=== PATIENT | male | born 1995 | race Caucasian/White ===

== ENCOUNTER → 2018-06-30 | Outpatient (CLI) | payer OTHER | LOC: COL.RAD 13:45 | DX: R51 Headache (principal) | CPT/HCPCS: A9585 ==

== ENCOUNTER 2018-09-06 13:30 | Emergency (ER) | payer OTHER ==
[~2018-09-06] VITALS: Ht 175.3 cm; Wt 86.4 kg
[2018-09-06] MEDS ORDERED: LEVSIN 0.10.125 MG/T PO (14:03)
[2018-09-06] MEDS ORDERED: LAMICTAL150 MG PO (14:05)
[2018-09-06] MEDS ORDERED: LEXAPRO20 MG PO (14:06)
[2018-09-06] MEDS ORDERED: BACTRIM DS 8001 TAB PO (14:07)
[2018-09-06] MEDS ORDERED: SINEQUAN 1010 MG/CAP PO (14:08)
[2018-09-06 14:15] LABS: BASO % 0.7 % (0.0-2.0); EOS # 0.2 (0.0-0.7); EOS % 2.9 % (0-4.0); GRAN # 3.9 (1.4-6.5); GRAN % 63.8 % (42.2-75.2); HEMATOCRIT 45.2 % (42.0-52.0); LYMPH # 1.1 (1.2-3.4); LYMPH % 18.7 % (20.0-51.0); MEAN CELL VOLUME 82 fl (80.0-100.0); MEAN CORPUSCULAR HEMOGLOBIN 29 pg (27.0-31.0); MEAN CORPUSCULAR HGB CONC 35 g/dl (33.0-37.0); MEAN PLATELET VOLUME 10.3 fl (7.4-10.4); MONO # 0.8 (0.1-0.6); MONO % 13.1 % (1.7-9.3); PLATELET COUNT 232 K/mm3 (130-400); RED BLOOD COUNT 5.51 M/mm3 (4.20-5.60)
[2018-09-06 14:28] LABS: ALBUMIN 4.5 gm/dL (3.5-5.0); BILIRUBIN,TOTAL 0.6 mg/dL (0.0-1.0); CALCIUM 9.1 mg/dL (8.4-10.2); CREATININE, serum 0.96 mg/dL (0.66-1.25); POTASSIUM 3.9 mmol/L (3.4-5.0); TOTAL PROTEIN 7.7 gm/dL (6.4-8.2)
[2018-09-06 15:47] VITALS: BP 120/76; PULSE 105; TEMP 99.4
== END 2018-09-06 16:00 | disposition home or self-care (01) ==
LOC: COL.ER 13:30
PROVIDERS: Physician Assistant
DX: T36.8X5A Adverse effect of other systemic antibiotics, initial encounter (principal); T37.0X5A Adverse effect of sulfonamides, initial encounter; R21 Rash and other nonspecific skin eruption; F32.9 Major depressive disorder, single episode, unspecified; F41.9 Anxiety disorder, unspecified
CPT/HCPCS: J7030

== ENCOUNTER → 2019-02-01 | Outpatient (CLI) | payer OTHER ==
[~2019-02-01] MED LIST: BACTRIM DS 8001 TAB PO; LAMICTAL150 MG PO; LEVSIN 0.10.125 MG/T PO; LEXAPRO20 MG PO; SINEQUAN 1010 MG/CAP PO
== END ==
LOC: COL.RAD 12:39
DX: N43.3 Hydrocele, unspecified (principal)

== ENCOUNTER → 2019-02-09 | Outpatient (CLI) | payer OTHER | LOC: COL.CARD 02-01 08:15 | DX: R00.2 Palpitations (principal) ==

== ENCOUNTER 2020-05-09 13:00 | Outpatient (RCR) | payer OTHER ==
[2020-04-20 15:33] LABS: BASO # 0.1 (0.0-0.2); BASO % 0.4 % (0.0-2.0); EOS % 0.3 % (0-4.0); GRAN # 8.6 (1.4-6.5); GRAN % 76.8 % (42.2-75.2); HEMATOCRIT 44.4 % (42.0-52.0); HEMOGLOBIN 15.4 g/dl (13.5-18.0); LYMPH # 1.9 (1.2-3.4); MEAN CELL VOLUME 84 fl (80.0-100.0); MEAN CORPUSCULAR HEMOGLOBIN 29 pg (27.0-31.0); MEAN CORPUSCULAR HGB CONC 35 g/dl (33.0-37.0); MEAN PLATELET VOLUME 9.8 fl (7.4-10.4); MONO # 0.6 (0.1-0.6); MONO % 5.1 % (1.7-9.3); PLATELET COUNT 304 K/mm3 (130-400)
[2020-04-20 15:53] LABS: ALBUMIN 4.7 gm/dL (3.5-5.0); BILIRUBIN,TOTAL 0.6 mg/dL (0.0-1.0); CALCIUM 9.6 mg/dL (8.4-10.2); CREATININE, serum 0.7 (0.66-1.25); POTASSIUM 4.1 mmol/L (3.4-5.0); TOTAL PROTEIN 7.7 gm/dL (6.4-8.2)
[2020-04-20 17:12] VITALS: BP 133/79; PULSE 98; TEMP 98.7
[2020-04-20 17:25] VITALS: PULSE 107
[2020-04-20 17:46] VITALS: BP 127/77; PULSE 103
[~2020-05-09] VITALS: Ht 170.2 cm; Wt 75.1 kg
[~2020-05-09 13:00] MED LIST changes: +ENTYVIO PO; -LAMICTAL150 MG PO; +LAMICTAL200 MG PO; +LEXAPRO 10MG10 MG PO; -LEXAPRO20 MG PO; +UCERIS PO
[2020-05-09 13:32] VITALS: BP 115/75; PULSE 77; TEMP 98.5
[2020-05-09 13:34] LABS: HEMATOCRIT 44.1 % (42.0-52.0); HEMOGLOBIN 15.1 g/dl (13.5-18.0); MEAN CELL VOLUME 85 fl (80.0-100.0); MEAN CORPUSCULAR HEMOGLOBIN 29 pg (27.0-31.0); MEAN CORPUSCULAR HGB CONC 34 g/dl (33.0-37.0); MEAN PLATELET VOLUME 9.8 fl (7.4-10.4); PLATELET COUNT 296 K/mm3 (130-400); REDCELL DISTRIBUTION WIDTH-CV 12.3 % (11.5-14.5)
[2020-05-09 13:47] LABS: ALBUMIN 4.4 gm/dL (3.5-5.0); BILIRUBIN,TOTAL 0.6 mg/dL (0.0-1.0); CALCIUM 9.1 mg/dL (8.4-10.2); CREATININE, serum 0.67 (0.66-1.25); TOTAL PROTEIN 7.2 gm/dL (6.4-8.2)
[2020-05-09 14:35] VITALS: BP 117/68; PULSE 60; TEMP 98.7
[2020-05-09 14:40] VITALS: BP 111/63; PULSE 71
[2020-05-09 14:50] VITALS: BP 127/68; PULSE 57
[2020-05-09 15:00] VITALS: BP 110/64; PULSE 68
[2020-05-09 15:10] VITALS: BP 108/55; PULSE 62
== END 2020-05-24 09:21 | disposition home or self-care (01) ==
LOC: EUO 13:00
PROVIDERS: Internal Medicine Gastroenterology
DX: K50.90 Crohn's disease, unspecified, without complications (principal); Z79.899 Other long term (current) drug therapy
CPT/HCPCS: J1200; J2920; J2930; J3380; J7050

== ENCOUNTER 2020-06-29 13:16 | Emergency (ER) | payer OTHER ==
[~2020-06-29] VITALS: Ht 170.2 cm; Wt 72.7 kg
[2020-06-29 13:27] VITALS: TEMP 99.6
[2020-06-29 15:17] LABS: BASO # 0.1 (0.0-0.2); BASO % 0.5 % (0.0-2.0); EOS # 0.1 (0.0-0.7); EOS % 1.4 % (0-4.0); GRAN # 7.1 (1.4-6.5); GRAN % 74.6 % (42.2-75.2); HEMATOCRIT 44.9 % (42.0-52.0); HEMOGLOBIN 15.9 g/dl (13.5-18.0); LYMPH # 1.5 (1.2-3.4); LYMPH % 15.6 % (20.0-51.0); MEAN CELL VOLUME 83 fl (80.0-100.0); MEAN CORPUSCULAR HEMOGLOBIN 29 pg (27.0-31.0); MEAN CORPUSCULAR HGB CONC 35 g/dl (33.0-37.0); MEAN PLATELET VOLUME 10.1 fl (7.4-10.4); MONO # 0.7 (0.1-0.6); MONO % 7.6 % (1.7-9.3); PLATELET COUNT 340 K/mm3 (130-400); RED BLOOD COUNT 5.43 M/mm3 (4.20-5.60); REDCELL DISTRIBUTION WIDTH-CV 11.9 % (11.5-14.5)
[2020-06-29 15:26] LABS: ALANINE AMINOTRANSFERASE 12 U/L (4-49); ALBUMIN 4.8 gm/dL (3.5-5.0); ALKALINE PHOSPHATASE 70 U/L (50-136); ANION GAP 10 mmol/L (7-16); AST,SGOT 19 U/L (15-37); BILIRUBIN,TOTAL 1.2 mg/dL (0.0-1.0); BLOOD UREA NITROGEN 9 mg/dL (9-20); CALCIUM 9.6 mg/dL (8.4-10.2); CARBON DIOXIDE 26 mmol/L (22-30); CHLORIDE 102 mmol/L (98-107); CREATININE, serum 0.94 (0.66-1.25); GLUCOSE 92 mg/dL (74-106); POTASSIUM 3.8 mmol/L (3.4-5.0); SODIUM 137 mmol/L (137-145); TOTAL PROTEIN 7.7 gm/dL (6.4-8.2)
[2020-06-29 15:28] LABS: C-REACTIVE PROTEIN < 0.5 mg/dL (0.0-0.9)
[2020-06-29 16:47] VITALS: BP 113/71; PULSE 99
== END 2020-06-29 16:30 | disposition home or self-care (01) ==
LOC: COL.ER 13:16
PROVIDERS: Physician Assistant
DX: R00.2 Palpitations (principal); R00.0 Tachycardia, unspecified; R11.0 Nausea; H93.19 Tinnitus, unspecified ear; T43.295A Adverse effect of other antidepressants, initial encounter; K50.90 Crohn's disease, unspecified, without complications; Z88.2 Allergy status to sulfonamides
CPT/HCPCS: J2060; J7030

== ENCOUNTER 2020-06-29 16:55 | Outpatient (CLI) | payer OTHER ==
[2020-06-29 06:15] VITALS: BP 115/85; PULSE 90
[2020-06-29 06:30] VITALS: BP 115/85; PULSE 84
[2020-06-29 06:45] VITALS: BP 108/84; PULSE 92
[2020-06-29 18:06] VITALS: BP 119/87; PULSE 92; TEMP 98.7
== END 2020-06-29 19:46 | disposition home or self-care (01) ==
LOC: EUO 16:55
DX: K50.90 Crohn's disease, unspecified, without complications (principal); Z79.899 Other long term (current) drug therapy
CPT/HCPCS: J1200; J2920; J3380; J7050

== ENCOUNTER 2020-08-15 13:00 | Outpatient (RCR) | payer OTHER ==
[2020-07-18 13:46] LABS: ALBUMIN 4.9 gm/dL (3.5-5.0); BILIRUBIN,TOTAL 0.7 mg/dL (0.0-1.0); CALCIUM 9.5 mg/dL (8.4-10.2); CREATININE, serum 0.78 (0.66-1.25); POTASSIUM 3.2 mmol/L (3.4-5.0); TOTAL PROTEIN 7.5 gm/dL (6.4-8.2)
[2020-07-18 13:57] LABS: HEMATOCRIT 45.2 % (42.0-52.0); HEMOGLOBIN 15.7 g/dl (13.5-18.0); MEAN CELL VOLUME 85 fl (80.0-100.0); MEAN CORPUSCULAR HEMOGLOBIN 29 pg (27.0-31.0); MEAN CORPUSCULAR HGB CONC 35 g/dl (33.0-37.0); MEAN PLATELET VOLUME 10.6 fl (7.4-10.4); PLATELET COUNT 343 K/mm3 (130-400); RED BLOOD COUNT 5.35 M/mm3 (4.20-5.60); REDCELL DISTRIBUTION WIDTH-CV 11.9 % (11.5-14.5)
[2020-07-18 15:24] VITALS: BP 140/86; PULSE 86; TEMP 97.8
[~2020-08-15] VITALS: Ht 170.2 cm; Wt 75.4 kg
[2020-08-15 13:37] LABS: HEMATOCRIT 45.9 % (42.0-52.0); HEMOGLOBIN 15.7 g/dl (13.5-18.0); MEAN CELL VOLUME 84 fl (80.0-100.0); MEAN CORPUSCULAR HEMOGLOBIN 29 pg (27.0-31.0); MEAN CORPUSCULAR HGB CONC 34 g/dl (33.0-37.0); MEAN PLATELET VOLUME 10.6 fl (7.4-10.4); PLATELET COUNT 305 K/mm3 (130-400); RED BLOOD COUNT 5.46 M/mm3 (4.20-5.60); REDCELL DISTRIBUTION WIDTH-CV 11.9 % (11.5-14.5)
[2020-08-15 14:17] LABS: ALBUMIN 4.6 gm/dL (3.5-5.0); BILIRUBIN,TOTAL 0.6 mg/dL (0.0-1.0); CALCIUM 9.4 mg/dL (8.4-10.2); CREATININE, serum 0.74 (0.66-1.25); TOTAL PROTEIN 7.3 gm/dL (6.4-8.2)
[2020-08-15 14:59] VITALS: BP 122/60; PULSE 102; TEMP 98.3
[2020-08-15 15:50] VITALS: BP 119/62; PULSE 89; TEMP 98.3
== END 2020-08-15 15:30 | disposition home or self-care (01) ==
LOC: EUO 13:00
PROVIDERS: Internal Medicine Gastroenterology
DX: K50.90 Crohn's disease, unspecified, without complications (principal); Z79.899 Other long term (current) drug therapy
CPT/HCPCS: J1200; J2920; J3380; J7050

== ENCOUNTER 2020-10-05 17:25 | Emergency (ER) | payer OTHER ==
[~2020-10-05] VITALS: Ht 170.2 cm; Wt 68.2 kg
[2020-10-05 17:39] VITALS: TEMP 98.9
[2020-10-05] MEDS ORDERED: LEXAPRO 10MG10 MG PO (18:10)
[2020-10-05 18:30] LABS: COLLECTION METHOD CLEAN CATCH
[2020-10-05 18:35] LABS: BASO % 0.3 % (0.0-2.0); EOS # 0.1 (0.0-0.7); EOS % 0.7 % (0-4.0); GRAN # 10.4 (1.4-6.5); GRAN % 77.5 % (42.2-75.2); HEMATOCRIT 44.3 % (42.0-52.0); HEMOGLOBIN 15.7 g/dl (13.5-18.0); LYMPH # 2.2 (1.2-3.4); LYMPH % 16.1 % (20.0-51.0); MEAN CELL VOLUME 84 fl (80.0-100.0); MEAN CORPUSCULAR HEMOGLOBIN 30 pg (27.0-31.0); MEAN CORPUSCULAR HGB CONC 35 g/dl (33.0-37.0); MEAN PLATELET VOLUME 10.4 fl (7.4-10.4); MONO # 0.7 (0.1-0.6); PLATELET COUNT 363 K/mm3 (130-400); REDCELL DISTRIBUTION WIDTH-CV 11.9 % (11.5-14.5)
[2020-10-05 18:39] LABS: ALBUMIN 4.7 gm/dL (3.5-5.0); BILIRUBIN,TOTAL 0.9 mg/dL (0.0-1.0); CALCIUM 9.3 mg/dL (8.4-10.2); CREATININE, serum 0.63 (0.66-1.25); TOTAL PROTEIN 7.4 gm/dL (6.4-8.2)
[2020-10-05 18:40] LABS: PH 7 (5-8); SQUAMOUS EPITHELIAL None Seen /hpf; URINE APPEARANCE Clear; URINE BACTERIA None Seen /hpf; URINE BILIRUBIN Negative (NEGATIVE); URINE BLOOD Negative (NEGATIVE); URINE COLOR Straw; URINE GLUCOSE Negative (NEGATIVE); URINE KETONE Negative (NEGATIVE); URINE LEUKOCYTE ESTERASE Negative (NEGATIVE); URINE NITRATE Negative (NEGATIVE); URINE PROTEIN(semi-quant) Negative (NEGATIVE); URINE RBC 0-2 /hpf; URINE UROBILINOGEN Negative (NEGATIVE)
[2020-10-05 21:45] VITALS: BP 126/70; PULSE 78
== END 2020-10-05 21:45 | disposition home or self-care (01) ==
LOC: COL.ER 17:25
PROVIDERS: Family Medicine
DX: G89.29 Other chronic pain (principal); F32.9 Major depressive disorder, single episode, unspecified; F41.9 Anxiety disorder, unspecified; Z88.2 Allergy status to sulfonamides; Z88.8 Allergy status to other drugs, medicaments and biological substances
CPT/HCPCS: J2060; J7030

== ENCOUNTER 2020-10-19 12:43 | Emergency (ER) | payer OTHER ==
[~2020-10-19] VITALS: Ht 170.2 cm; Wt 65.9 kg
[2020-10-19 12:58] VITALS: BP 130/75; TEMP 97.6
[2020-10-19 14:04] LABS: HEMATOCRIT 44.9 % (42.0-52.0); HEMOGLOBIN 15.6 g/dl (13.5-18.0); MEAN CELL VOLUME 85 fl (80.0-100.0); MEAN CORPUSCULAR HEMOGLOBIN 29 pg (27.0-31.0); MEAN CORPUSCULAR HGB CONC 35 g/dl (33.0-37.0); MEAN PLATELET VOLUME 9.6 fl (7.4-10.4); PLATELET COUNT 363 K/mm3 (130-400); REDCELL DISTRIBUTION WIDTH-CV 11.9 % (11.5-14.5)
[2020-10-19 14:09] LABS: CALCIUM 9.6 mg/dL (8.4-10.2); CREATININE, serum 0.7 (0.66-1.25); POTASSIUM 4.2 mmol/L (3.4-5.0)
[2020-10-19 14:58] VITALS: PULSE 104
== END 2020-10-19 15:00 | disposition other institution (70) ==
LOC: COL.ER 12:43
PROVIDERS: Internal Medicine Gastroenterology
DX: K92.1 Melena (principal); F32.9 Major depressive disorder, single episode, unspecified; F41.9 Anxiety disorder, unspecified; K50.80 Crohn's disease of both small and large intestine without complications; Z88.2 Allergy status to sulfonamides; Z88.8 Allergy status to other drugs, medicaments and biological substances

== ENCOUNTER 2020-10-21 11:38 | Emergency (ER) | payer OTHER ==
[~2020-10-21] VITALS: Ht 170.2 cm; Wt 65.9 kg
[2020-10-21 12:07] VITALS: TEMP 98.8
[2020-10-21 13:04] LABS: BASO % 0.5 % (0.0-2.0); EOS # 0.1 (0.0-0.7); EOS % 0.9 % (0-4.0); GRAN # 4.5 (1.4-6.5); GRAN % 70.1 % (42.2-75.2); HEMATOCRIT 39.2 % (42.0-52.0); HEMOGLOBIN 13.9 g/dl (13.5-18.0); LYMPH # 1.4 (1.2-3.4); MEAN CELL VOLUME 83 fl (80.0-100.0); MEAN CORPUSCULAR HEMOGLOBIN 29 pg (27.0-31.0); MEAN CORPUSCULAR HGB CONC 36 g/dl (33.0-37.0); MEAN PLATELET VOLUME 9.5 fl (7.4-10.4); MONO # 0.4 (0.1-0.6); MONO % 6.2 % (1.7-9.3); PLATELET COUNT 317 K/mm3 (130-400); RED BLOOD COUNT 4.73 M/mm3 (4.20-5.60); REDCELL DISTRIBUTION WIDTH-CV 11.8 % (11.5-14.5)
[2020-10-21 13:25] LABS: ALANINE AMINOTRANSFERASE 11 U/L (4-49); ALBUMIN 4.3 gm/dL (3.5-5.0); ALKALINE PHOSPHATASE 46 U/L (50-136); ANION GAP 7 mmol/L (7-16); AST,SGOT 25 U/L (15-37); BILIRUBIN,TOTAL 0.8 mg/dL (0.0-1.0); BLOOD UREA NITROGEN 11 mg/dL (9-20); CALCIUM 9.1 mg/dL (8.4-10.2); CARBON DIOXIDE 27 mmol/L (22-30); CHLORIDE 103 mmol/L (98-107); CREATININE, serum 0.69 (0.66-1.25); GLUCOSE 102 mg/dL (74-106); LIPASE 193 U/L (23-300); POTASSIUM 3.7 mmol/L (3.4-5.0); SODIUM 137 mmol/L (137-145); TOTAL PROTEIN 6.8 gm/dL (6.4-8.2)
[2020-10-21 13:26] LABS: C-REACTIVE PROTEIN < 0.5 mg/dL (0.0-0.9)
[2020-10-21 13:27] LABS: COLLECTION METHOD CLEAN CATCH
[2020-10-21 13:44] LABS: PH 7 (5-8); SQUAMOUS EPITHELIAL None Seen /hpf; URINE APPEARANCE Clear; URINE BACTERIA None Seen /hpf; URINE BILIRUBIN Negative (NEGATIVE); URINE BLOOD Negative (NEGATIVE); URINE COLOR Straw; URINE GLUCOSE Negative (NEGATIVE); URINE KETONE Trace (NEGATIVE); URINE LEUKOCYTE ESTERASE Negative (NEGATIVE); URINE NITRATE Negative (NEGATIVE); URINE PROTEIN(semi-quant) Negative (NEGATIVE); URINE RBC 0-2 /hpf; URINE UROBILINOGEN Negative (NEGATIVE)
[2020-10-21 19:24] VITALS: BP 126/86; PULSE 82
== END 2020-10-21 19:25 | disposition home or self-care (01) ==
LOC: COL.ER 11:38
PROVIDERS: Family Medicine
DX: F41.9 Anxiety disorder, unspecified (principal); K92.1 Melena; R10.9 Unspecified abdominal pain; R53.83 Other fatigue; F32.9 Major depressive disorder, single episode, unspecified; Z88.2 Allergy status to sulfonamides; Z88.8 Allergy status to other drugs, medicaments and biological substances
CPT/HCPCS: J2405; J7120

== ENCOUNTER 2020-10-31 14:07 | Outpatient (CLI) | payer OTHER ==
[~2020-10-31] VITALS: Ht 170.2 cm; Wt 69.7 kg
[2020-10-31 14:30] LABS: HEMATOCRIT 39.2 % (42.0-52.0); HEMOGLOBIN 13.6 g/dl (13.5-18.0); MEAN CELL VOLUME 85 fl (80.0-100.0); MEAN CORPUSCULAR HEMOGLOBIN 30 pg (27.0-31.0); MEAN CORPUSCULAR HGB CONC 35 g/dl (33.0-37.0); PLATELET COUNT 348 K/mm3 (130-400); RED BLOOD COUNT 4.61 M/mm3 (4.20-5.60); REDCELL DISTRIBUTION WIDTH-CV 12.4 % (11.5-14.5)
[2020-10-31 14:40] LABS: ALBUMIN 4.3 gm/dL (3.5-5.0); BILIRUBIN,TOTAL 0.3 mg/dL (0.0-1.0); CALCIUM 9.4 mg/dL (8.4-10.2); CREATININE, serum 0.63 (0.66-1.25); POTASSIUM 4.2 mmol/L (3.4-5.0)
[2020-10-31] MEDS ORDERED: ATARAX 10MG10 MG/TAB PO (14:40)
== END 2020-10-31 16:00 | disposition home or self-care (01) ==
LOC: EUO
PROVIDERS: Internal Medicine Gastroenterology
DX: K50.90 Crohn's disease, unspecified, without complications (principal); Z79.899 Other long term (current) drug therapy
CPT/HCPCS: J1200; J2920; J3380; J7050

== ENCOUNTER 2020-12-19 10:14 | Emergency (ER) | payer OTHER ==
[~2020-12-19] VITALS: Ht 170.2 cm; Wt 65.9 kg
[~2020-12-19 10:14] MED LIST changes: +ATARAX 10MG10 MG/TAB PO
[2020-12-19 10:21] VITALS: BP 129/83; TEMP 98.6
[2020-12-19 11:29] LABS: ALBUMIN 4.5 gm/dL (3.5-5.0); BILIRUBIN,TOTAL 0.4 mg/dL (0.0-1.0); C-REACTIVE PROTEIN 1.2 mg/dL (0.0-0.9); CALCIUM 9.4 mg/dL (8.4-10.2); CREATININE, serum 0.73 (0.66-1.25); POTASSIUM 3.7 mmol/L (3.4-5.0); TOTAL PROTEIN 7.4 gm/dL (6.4-8.2)
[2020-12-19 12:35] VITALS: PULSE 91
== END 2020-12-19 12:30 | disposition home or self-care (01) ==
LOC: COL.ER 10:14
PROVIDERS: Emergency Medicine
DX: F41.9 Anxiety disorder, unspecified (principal); F32.9 Major depressive disorder, single episode, unspecified; G40.909 Epilepsy, unspecified, not intractable, without status epilepticus; R00.0 Tachycardia, unspecified; Z88.1 Allergy status to other antibiotic agents; Z88.2 Allergy status to sulfonamides; Z88.8 Allergy status to other drugs, medicaments and biological substances; Z79.899 Other long term (current) drug therapy